=== PATIENT | female | born 1995 | race Caucasian/White ===

== ENCOUNTER 2016-12-17 11:20 | Emergency (ER) | payer OTHER ==
[2016-12-17 11:28] VITALS: BP 116/67; PULSE 97; TEMP 98.6; BMI 24.5
--- NOTE | 2016-12-17 11:50 | PDOC ---
History of Present Illness - General Chief Complaint: Eye Problem Stated Complaint: PINK EYE Time Seen by Provider: 12/17/16 11:34 History Source: Patient Exam Limitations: No Limitations - History of Present Illness Initial Comments: 12/17/16 11:45 CHIEF COMPLAINT: Redness and drainage to right eye HISTORY OF PRESENT ILLNESS: Patient is a 21-year-old female, no significant medical history currently on no medication reports that multiple family members have pink eye and she woke up this morning with drainage and pruritus to right eye. Denies any visual disturbance, vision is 20/20. REVIEW OF SYSTEMS: GENERAL/CONSTITUTIONAL: No fever or chills. No weakness. No weight change. HEAD, EYES, EARS, NOSE AND THROAT: No change in vision. Drainage and pruritus to right eye. No ear pain or discharge. No sore throat. RESPIRATORY: No cough, wheezing, or hemoptysis. SKIN : No rash or easy bruising. NEUROLOGIC: No headache, vertigo, loss of consciousness, or loss of sensation. HEMATOLOGIC/LYMPHATIC: No lymphadenopathy ALLERGIC/IMMUNOLOGIC: No hives or skin allergy. No latex allergy. PHYSICAL EXAM: GENERAL: The patient is awake, alert, and fully oriented, in no acute distress. HEAD: Normal with no signs of trauma. EYES: Pupils equal, round and reactive to light, extraocular movements intact, sclera anicteric, conjunctiva injected, extending to limbus after fluorescein staining, no corneal abrasion noted. ENT: Ears normal, nares patent, oropharynx clear without exudates. Moist mucous membranes. NECK: Normal range of motion, supple without lymphadenopathy, JVD, or masses. LUNGS: Breath sounds equal, clear to auscultation bilaterally. No wheezes, and no crackles. NEUROLOGICAL: Cranial nerves II through XII grossly intact. Normal speech, normal gait. SKIN: No erythema no facial edema. Warm, Dry, normal turgor, no rashes or lesions noted. Past History - Past Medical History Allergies/Adverse Reactions: Allergies Allergy/AdvReac Type Severity Reaction Status Date / Time No Known Allergies Allergy Verified 12/17/16 11:28 Home Medications: Ambulatory Orders Polymyxin B Sulfate/Tmp [Polytrim Opthalmic Solution -] 1 drop OD Q3H #1 drops 12/17/16 Other medical history: NONE - Psycho/Social/Smoking Cessation Hx Anxiety: No Suicidal Ideation: No Smoking History: Never smoked Hx Alcohol Use: No Drug/Substance Use Hx: No Substance Use Type: None *Physical Exam - Vital Signs Last Vital Signs Temp Pulse Resp BP Pulse Ox 98.6 F 97 H 20 116/67 99 12/17/16 11:26 12/17/16 11:26 12/17/16 11:26 12/17/16 11:26 12/17/16 11:26 *DC/Admit/Observation/Transfer Diagnosis at time of Disposition: Conjunctivitis Qualifiers: Conjunctivitis type: acute Acute conjunctivitis type: bacterial Laterality: right Qualified Code(s): H10.31 - Unspecified acute conjunctivitis, right eye - Discharge Dispostion Disposition: HOME Condition at time of disposition: Good Admit: No - Prescriptions Prescriptions: Polymyxin B Sulfate/Tmp [Polytrim Opthalmic Solution -] 1 drop OD Q3H #1 drops - Referrals Referrals: Isaías Medrano MD [Primary Care Provider] - - Patient Instructions Printed Discharge Instructions: Conjunctivitis Additional Instructions: * Refrain from touching or scratching eye * Please wash hands frequently * Please followup with his primary care doctor in 2 days if symptoms persist * Medication as prescribed * Warm compresses to eye * If increased redness, swelling, pain to the eye please follow up with primary care doctor immediately or return to emergency room - Post Discharge Activity Work/School Note: Back to Work
== END 2016-12-17 11:53 | disposition home or self-care (01) ==
LOC: JERFT 11:20
DX: R10.31 Right lower quadrant pain (principal)
CPT/HCPCS: 99281-25

== ENCOUNTER 2023-10-04 16:36 | Emergency (ER) | payer OTHER ==
[2023-10-04 16:43] VITALS: BMI 28.3
[2023-10-04 18:25] LABS: BASO % 0.3 % (0-2.0); EOS % 0.1 % (0-4.5); HEMATOCRIT 39.8 % (32.4-45.2); HEMOGLOBIN 13.3 GM/dL (10.7-15.3); LYMPH % 27.4 % (8-40); MCH 28.9 pg (25.7-33.7); MCHC 33.4 g/dl (32.0-36.0); MEAN CELL VOLUME 86.6 fl (80-96); MEAN PLT VOLUME 8.5 fl (7.5-11.1); NEUT % 63.2 % (42.8-82.8); PLATELET COUNT 273 10^3/uL (134-434); RBC 4.59 M/mm3 (3.60-5.2); RDW 14.2 % (11.6-15.6); WHITE BLOOD COUNT 6.8 K/mm3 (4.0-10.0)
[2023-10-04 18:37] LABS: POTASSIUM 3.8 mmol/L (3.5-5.1)
[2023-10-04 18:39] LABS: CALCIUM 8.2 mg/dL (8.5-10.1)
[2023-10-04 18:40] LABS: ALBUMIN 3.4 g/dl (3.4-5.0); BLOOD UREA NITROGEN 8.7 mg/dL (7-18)
[2023-10-04 18:43] LABS: CREATININE 0.7 mg/dL (0.55-1.3)
[2023-10-04 18:45] LABS: BILIRUBIN,TOTAL 0.2 mg/dL (0.2-1); TOT PROT 7.1 g/dl (6.4-8.2)
[2023-10-04] MEDS: LACTATED RINGERS SOLUTION 1,000 ML/1,000 ML INFUS.BAG IV STA (19:39)
[2023-10-04 20:12] LABS: EPI CELLS 34 /uL (0-25.1); HYALINE CASTS 1 /uL (0-3.1); URINE APPEARANCE CLEAR; URINE BACTERIA 670 /uL (0-1359); URINE BILIRUBIN NEGATIVE (NEGATIVE); URINE COLOR YELLOW; URINE GLUCOSE (UA) NEGATIVE (NEGATIVE); URINE KETONE NEGATIVE (NEGATIVE); URINE LEUK ESTERASE NEGATIVE (NEGATIVE); URINE NITRITE NEGATIVE (NEGATIVE); URINE PROTEIN NEGATIVE (NEGATIVE); URINE UROBILINOGEN 0.2 mg/dL (0.2-1.0); URINE WBC 20 /uL (0-25.8)
[2023-10-04 20:24] LABS: HCG,QUALITATIVE URINE Negative
[2023-10-04 20:44] LABS: URINE RBC 55.7 /uL (0-23.9)
[2023-10-04 22:25] VITALS: BP 119/78; PULSE 77; RESP 18; TEMP 97.9
== END 2023-10-04 23:02 | disposition home or self-care (01) ==
LOC: JER 16:36
PROC: 3E0337Z Introduction of Electrolytic and Water Balance Substance into Peripheral Vein, Percutaneous Approach (ICD-10-PCS; principal; 2023-10-04)
DX: R19.7 Diarrhea, unspecified (principal); K52.9 Noninfective gastroenteritis and colitis, unspecified; Z20.822 Contact with and (suspected) exposure to COVID-19
CPT/HCPCS: 0241U-QW; 36415; 74177-TC; 80053; 81003; 84703; 85025; 87086; 99285-25; Q9967